=== PATIENT | male | born 1970 | race Caucasian/White ===

== ENCOUNTER 2018-03-02 14:00 | Emergency (ER) | payer OTHER ==
[2018-03-02 14:12] VITALS: RESP 16; BMI 29.0
[2018-03-02] MEDS ORDERED: Sodium Chloride 0.9% 1,000 ML IV STA (15:16)
--- NOTE | 2018-03-02 15:21 | ED PDOC ---
HPI: Male Pain Time Seen by Provider: 03/02/18 14:52 Chief Complaint (Nursing): Male Genitourinary Chief Complaint (Provider): Abd pain and urine blood History Per: Patient History/Exam Limitations: no limitations Onset/Duration Of Symptoms: Days (today) Additional Complaint(s): Pt. woke up with bloody urine, abd pain, back pain. No weakness, chest pain, dyspnea, fever, cough. No headaches, dizziness. Nausea, no vomit. No diarrhea. Past Medical History Reviewed: Nursing Documentation, Vital Signs Vital Signs: Last Vital Signs Temp 97 F L 03/02/18 14:11 Pulse 62 03/02/18 14:11 Resp 16 03/02/18 14:11 BP 128/79 03/02/18 14:11 Pulse Ox 99 03/02/18 14:11 - Medical History PMH: HTN Denies: Chronic Kidney Disease - Surgical History Surgical History: No Surg Hx Other surgeries: thyroid surg - Family History Family History: States: Unknown Family Hx - Home Medications Home Medications: Ambulatory Orders Medication Instructions Recorded Acetaminophen [Tylenol] 325 mg PO Q6H PRN 02/04/14 Ca Pantothenate/Folic Acid/V [Once 1 tab PO DAILY 02/04/14 Daily Multi-Vitamin] Cholecalciferol (Vitamin D3) 5,000 unit PO DAILY 02/04/14 [Vitamin D] Metoprolol Tartrate [Lopressor] 12.5 mg PO Q12H 02/04/14 Omeprazole Magnesium [Prilosec Otc] 20 mg PO DAILY PRN 02/04/14 Calcium Carbonate [Calcium 600] 600 mg PO BID #60 tab 02/07/14 Levothyroxine Sodium [Synthroid] 0.175 mg PO DAILY #30 tab 02/07/14 Ibuprofen [Motrin] 600 mg PO TID 7 Days tab 03/02/18 - Allergies Allergies/Adverse Reactions: Allergies Allergy/AdvReac Type Severity Reaction Status Date / Time No Known Allergies Allergy Verified 02/04/14 00:42 Review of Systems ROS Statement: Except As Marked, All Systems Reviewed And Found Negative Gastrointestinal: Positive for: Nausea, Abdominal Pain Genitourinary Male: Positive for: Dysuria, Frequency, Hematuria Physical Exam - Reviewed Nursing Documentation Reviewed: Yes Vital Signs Reviewed: Yes - Physical Exam Appears: Positive for: Non-toxic, No Acute Distress Head Exam: Positive for: ATRAUMATIC, NORMAL INSPECTION, NORMOCEPHALIC Skin: Positive for: Normal Color, Warm, DRY Eye Exam: Positive for: EOMI, Normal appearance, PERRL ENT: Positive for: Normal ENT Inspection Neck: Positive for: Normal, Painless ROM Cardiovascular/Chest: Positive for: Regular Rate, Rhythm Respiratory: Positive for: CNT, Normal Breath Sounds Gastrointestinal/Abdominal: Positive for: Soft, Tenderness (diffuse, mild) Back: Positive for: Normal Inspection, L CVA Tenderness (mild), R CVA Tenderness (mild) Extremity: Positive for: Normal ROM. Negative for: Tenderness, Pedal Edema Neurologic/Psych: Positive for: Alert, Oriented - Laboratory Results Result Diagrams: 03/02/18 15:40 03/02/18 15:40 Interpretation Of Abn Labs: 23 bun Urine dip results: Positive for: Blood - ECG O2 Sat by Pulse Oximetry: 99 Pulse Ox Interpretation: Normal - CT Scan/US ct Other Rad Studies (CT/US): Read By Radiologist Other Rad Interpretation: stone in kidney - Progress ED Course And Treament: 1730: Stable. Alert. Tolerates PO. No pain. Fu with pcp. AAOx3. Possibly passed stone considering urine and symptoms with ct findings. Disposition - Clinical Impression Clinical Impression: Kidney stones, Blood urine - Patient ED Disposition Is Patient to be Admitted: No Counseled Patient/Family Regarding: Studies Performed, Diagnosis, Need For Followup - Disposition Referrals: [facility] [Outside] - 03/04/18 Disposition: Routine/Home Disposition Time: 17:32 Condition: STABLE Additional Instructions: Return if not better in 3 days. Prescriptions: Ibuprofen [Motrin] 600 mg PO TID 7 Days tab Instructions: Kidney Stones in Adults, Blood in the Urine (Hematuria) in Adults Print Language: GEORGIAN
--- NOTE | 2018-03-02 16:27 | CT ---
Date of service: 03/02/2018 PROCEDURE: CT Abdomen and Pelvis without intravenous contrast HISTORY: Unspecified abdominal pain COMPARISON: None. TECHNIQUE: Unenhanced. Neither IV nor oral contrast administered Radiation dose: Total exam DLP = 502.79 mGy-cm. This CT exam was performed using one or more of the following dose reduction techniques: Automated exposure control, adjustment of the mA and/or kV according to patient size, and/or use of iterative reconstruction technique. FINDINGS: LOWER THORAX: Unremarkable. LIVER: Unremarkable. No gross lesion or ductal dilatation. GALLBLADDER AND BILE DUCTS: Unremarkable. PANCREAS: Unremarkable. No gross lesion or ductal dilatation. SPLEEN: Unremarkable. ADRENALS: Unremarkable. No mass. KIDNEYS AND URETERS: Unremarkable. No hydronephrosis. No solid mass. Nonobstructing 2 mm calculus lower pole collecting system on the left VASCULATURE: Unremarkable. No aortic aneurysm. No atherosclerotic calcification or mural plaque present. BOWEL: Diverticulosis without an acute inflammatory component or other associated pathologic process. APPENDIX: Multiple appendicoliths. No abnormalities to suggest acute appendicitis. No right lower quadrant inflammatory processes identified. PERITONEUM: Unremarkable. No free fluid. No free air. LYMPH NODES: Unremarkable. No enlarged lymph nodes. BLADDER: Unremarkable. REPRODUCTIVE: Unremarkable. BONES: No acute fracture. OTHER FINDINGS: None. IMPRESSION: Solitary and 2 mm nonobstructing left renal calculus. Otherwise No significant or acute findings to account for/ related to the clinical presentation.
[2018-03-02 16:31] LABS: BASO % 0.3 % (0.0-2.0); EOS # 0.1 K/uL (0.0-0.7); EOS % 1.6 % (0.0-4.0); HEMOGLOBIN 15.5 g/dL (12.0-18.0); LYMPH # 1.1 K/uL (1.0-4.3); LYMPH % 20.6 % (20.0-40.0); MEAN CELL VOLUME 89.6 fl (80.0-94.0); MEAN CORPUSCULAR HEMOGLOBIN 29.7 pg (27.0-31.0); MEAN CORPUSCULAR HGB CONC 33.1 g/dL (33.0-37.0); MEAN PLATELET VOLUME 7.8 fl (7.2-11.7); MONO # 0.5 K/uL (0.0-0.8); MONO % 9.8 % (0.0-10.0); NEUT # 3.5 K/uL (1.8-7.0); NEUT % 67.7 % (50.0-75.0); RBC 5.23 Mil/uL (4.40-5.90); RED CELL DISTRIBUTION WIDTH 14.4 % (11.5-14.5); WHITE BLOOD COUNT 5.2 K/uL (4.8-10.8)
[2018-03-02 16:39] LABS: ALB/GLOB RATIO 1.2 (1.0-2.1); ALBUMIN 4.3 g/dL (3.5-5.0); ALT/SGPT 47 U/L (21-72); AST/SGOT 33 U/L (17-59); BLOOD UREA NITROGEN 23 mg/dl (9-20); CALCIUM 7.8 mg/dL (8.4-10.2); GFR NON-AFRICAN AMERICAN > 60
[2018-03-02 16:44] LABS: PROTHROMBIN TIME 11.3 Seconds (9.8-13.1)
[2018-03-02 18:30] VITALS: BP 107/51; PULSE 55; TEMP 98.1; O2SAT 96
== END 2018-03-02 18:25 | disposition home or self-care (01) ==
LOC: H.ER 14:00
DX: N20.0 Calculus of kidney (principal); R31.9 Hematuria, unspecified; I10 Essential (primary) hypertension
CPT/HCPCS: 74176; 80053; 85025; 85610; 85730; 96361; 96374; 96375; 99284; J1885; J2405; J7030

== ENCOUNTER 2018-06-05 01:08 | Observation (INO) | payer SELFPAY ==
[2018-06-05 01:09] VITALS: BMI 29.0
[2018-06-05] MEDS ORDERED: Sodium Chloride 0.9% 1,000 ML IV STA (02:17)
--- NOTE | 2018-06-05 02:59 | ED PDOC ---
HPI: Male Pain Time Seen by Provider: 06/05/18 01:30 Chief Complaint (Nursing): Male Genitourinary Chief Complaint (Provider): Male Genitourinary History Per: Patient Onset/Duration Of Symptoms: Hrs (3) Current Symptoms Are (Timing): Still Present Associated Symptoms: Back Pain, Urinary Symptoms Additional Complaint(s): 48 y/o male with a history of kidney stones and hematuria presents to the ED due to hematuria since midnight. Patient states he saw a urologist who recently performed cystoscopy and found no lesions to explain the hematuria. Patient reports he has 2 episodes of bright red blood in urine with blood clots that is associated with lower back pain and abdominal pain. PMD: none provided Past Medical History Vital Signs: Last Vital Signs Temp 98.9 F 06/05/18 01:25 Pulse 82 06/05/18 01:25 Resp 16 06/05/18 01:25 BP 123/82 06/05/18 01:25 Pulse Ox 96 06/05/18 01:25 - Medical History PMH: HTN, Kidney Stones Denies: Chronic Kidney Disease - Family History Family History: States: Unknown Family Hx - Home Medications Home Medications: Ambulatory Orders Medication Instructions Recorded Acetaminophen [Tylenol] 325 mg PO Q6H PRN 02/04/14 Ca Pantothenate/Folic Acid/V [Once 1 tab PO DAILY 02/04/14 Daily Multi-Vitamin] Cholecalciferol (Vitamin D3) 5,000 unit PO DAILY 02/04/14 [Vitamin D] Metoprolol Tartrate [Lopressor] 12.5 mg PO Q12H 02/04/14 Omeprazole Magnesium [Prilosec Otc] 20 mg PO DAILY PRN 02/04/14 Calcium Carbonate [Calcium 600] 600 mg PO BID #60 tab 02/07/14 Levothyroxine Sodium [Synthroid] 0.175 mg PO DAILY #30 tab 02/07/14 Ibuprofen [Motrin] 600 mg PO TID 7 Days tab 03/02/18 Sulfamethoxazole/Trimethoprim 1 tab PO BID #20 tab 06/05/18 [Bactrim DS 800 mg-160 mg] - Allergies Allergies/Adverse Reactions: Allergies Allergy/AdvReac Type Severity Reaction Status Date / Time No Known Allergies Allergy Verified 06/05/18 01:25 Review of Systems ROS Statement: Except As Marked, All Systems Reviewed And Found Negative Gastrointestinal: Positive for: Abdominal Pain (lower) Genitourinary Male: Positive for: Hematuria Musculoskeletal: Positive for: Back Pain Physical Exam - Reviewed Nursing Documentation Reviewed: Yes Vital Signs Reviewed: Yes - Physical Exam Appears: Positive for: Non-toxic, No Acute Distress Head Exam: Positive for: ATRAUMATIC, NORMAL INSPECTION, NORMOCEPHALIC Skin: Positive for: Normal Color, Warm, Dry Eye Exam: Positive for: EOMI, Normal appearance, PERRL ENT: Positive for: Normal ENT Inspection Neck: Positive for: Normal, Painless ROM, Supple Cardiovascular/Chest: Positive for: Regular Rate, Rhythm. Negative for: Murmur Respiratory: Positive for: CNT, Normal Breath Sounds Gastrointestinal/Abdominal: Positive for: Tenderness (mild abdominal ) Extremity: Positive for: Normal ROM Neurological/Psych: Positive for: Awake, Alert, Normal Tone - Laboratory Results Result Diagrams: 06/05/18 03:15 06/05/18 03:15 - ECG O2 Sat by Pulse Oximetry: 96 Medical Decision Making Medical Decision Makin:17 Impression: 48 y/o male presents with gross hematuria. initial plans: 02:17 --CMP --CBC --ABD & PELVIS W/O PO OR IV --Urine Dipstick -- Sodium Chloride 1,000ml IV --Torodol 30mg IV -- Urinalysis 04:06 CT SCAN OF THE ABDOMEN AND PELVIS WITHOUT ORAL OR IV CONTRAST. CLINICAL INDICATION: Renal colic. TECHNIQUE: Axial and reformatted sagittal and coronal images of the abdomen pelvis obtained without IV contrast administration. COMPARISON: None. FINDINGS: Fat-containing right inguinal hernia without incarceration. Uncomplicated diverticulosis of the colon. Moderate amount of fecal residue in the large bowels. Mild prostatomegaly. Scattered prostatic calcifications. The visualized lung bases are unremarkable. Normal unenhanced liver. Normal gallbladder and extrahepatic biliary system. Normal unenhanced spleen. Normal pancreas. Normal bilateral adrenal glands. Normal size of the right kidney. There is no right renal mass. There are no right renal calculi. There is no right hydronephrosis. Normal visualized right ureter. Normal size of the left kidney. There is no left renal mass. 3 mm left renal nonobstructing stone. There is no left hydronephrosis. Normal visualized left ureter. Normal visualized stomach. Normal small intestine. Normal colon. The appendix is visualized and appears normal. There is no demonstrated peritoneal fluid. Normal abdominal aorta. Normal inferior vena cava. Normal retroperitoneum. Normal urinary bladder. There is no pelvic mass lesion or lymphadenopathy. There is no pelvic fluid. Normal abdominal wall. Normal osseous structures. IMPRESSION: Fat-containing right inguinal hernia without incarceration. Uncomplicated diverticulosis of the colon. Moderate amount of fecal residue in the large bowels. Mild prostatomegaly. Scattered prostatic calcifications. Nonobstructing left nephrolithiasis. 05:[address] Fernandez, the urologist who performed the cystoscopy, of patient. He would like to rescope patient today in order to find source of bleeding. Patient will be admitted. Case referred to Dr. Chavis. Scribe Attestation: Documented by Lucila Mcgrath, acting as a scribe Al Huntley MD Provider Scribe Attestation: All medical record entries made by the Scribe were at my direction and personally dictated by me. I have reviewed the chart and agree that the record accurately reflects my personal performance of the history, physical exam, medical decision making, and the department course for this patient. I have also personally directed, reviewed, and agree with the discharge instructions and disposition Disposition - Clinical Impression Clinical Impression: Hematuria, Kidney stone - Disposition Referrals: Shaq Fernandez MD [Medical Doctor] - Disposition Time: 05:36 Condition: STABLE Prescriptions: Sulfamethoxazole/Trimethoprim [Bactrim DS 800 mg-160 mg] 1 tab PO BID #20 tab Instructions: Kidney Stones in Adults, Blood in the Urine (Hematuria), Adult (DC) Forms: [employer] (Ghanaian) Print Language: AUSTRIAN - Pt Status Changed To: Hospital Disposition Of: Inpatient - Admit Certification Admit to Inpatient:: After my assessment, the patient will require hospitalization for at least two midnights. This is because of the severity of symptoms shown, intensity of services needed, and/or the medical risk in this patient being treated as an outpatient.
[2018-06-05 03:24] LABS: BASO % 0.3 % (0.0-2.0); EOS # 0.1 K/uL (0.0-0.7); HEMOGLOBIN 14.8 g/dL (12.0-18.0); LYMPH # 1.9 K/uL (1.0-4.3); LYMPH % 25.3 % (20.0-40.0); MEAN CELL VOLUME 88.9 fl (80.0-94.0); MEAN CORPUSCULAR HEMOGLOBIN 30.4 pg (27.0-31.0); MEAN CORPUSCULAR HGB CONC 34.2 g/dL (33.0-37.0); MEAN PLATELET VOLUME 7.8 fl (7.2-11.7); MONO # 0.7 K/uL (0.0-0.8); MONO % 8.7 % (0.0-10.0); NEUT # 4.7 K/uL (1.8-7.0); NEUT % 63.7 % (50.0-75.0); NRBC % 0.3 % (0.0-0.0); RBC 4.86 Mil/uL (4.40-5.90); RED CELL DISTRIBUTION WIDTH 14.2 % (11.5-14.5)
[2018-06-05 03:26] LABS: WHITE BLOOD COUNT 7.5 K/uL (4.8-10.8)
[2018-06-05 03:32] LABS: ALB/GLOB RATIO 1.3 (1.0-2.1); ALBUMIN 4.4 g/dL (3.5-5.0); ALT/SGPT 44 U/L (21-72); AST/SGOT 29 U/L (17-59); BLOOD UREA NITROGEN 27 mg/dl (9-20); CALCIUM 8.2 mg/dL (8.4-10.2); GFR NON-AFRICAN AMERICAN > 60
[2018-06-05 04:53] LABS: URINE BILIRUBIN NEGATIVE (NEGATIVE); URINE BLOOD LARGE (NEGATIVE); URINE CLARITY CLOUDY (Clear); URINE COLOR AMBER (YELLOW); URINE GLUCOSE (UA) NEG (NEGATIVE); URINE LEUKOCYTE ESTERASE NEG Leu/uL (Negative); URINE PROTEIN 100 mg/dL (NEGATIVE); URINE UROBILINOGEN 0.2-1.0 mg/dL (0.2-1.0)
[2018-06-05] MEDS ORDERED: Sodium Chloride 0.9% 1,000 ML IV SCH (06:15)
--- NOTE | 2018-06-05 06:20 | CP.PCM.HP ---
<Aristides Tovar - Last Filed: 06/05/18 06:12> History of Present Illness - History of Present Illness History of Present Illness: This is 48 y/o M with PMH of Graves s/p thyroidectomy few years ago and hematuria s/p cystoscopy a month ago admitted to [facility] for gross hematuria. As per patient he has been having intermittent hematuria since his cystectomy with Dr. Wright which got worse in last 2 days. Patient reports gross hematuria with blood clots continues since last 2 days with hesitancy and uncomfortable feeling while urinating. + nausea, + occasional abdominal pain/cramping and bloating. Denies any f/c/v/back pain, diarrhea or blood with stool. PMH/PSH: Graves s/p thyroidectomy few years ago and hematuria s/p cystectomy Allg: NKDA Meds: As per EMR FH: + DM, no cancers SH: Denies alcohol, smoking or drug use ROS: As per HPI ER COurse: VS: Afebrile and stable CBC: WNL, no anemia CMP: 27/0/7 BUN/CR UA: + large blood and RBCs CT A/P S/p: Toradol, Ceftriaxone and 1L IVF Present on Admission - Present on Admission Any Indicators Present on Admission: No Review of Systems - Constitutional Constitutional: absent: Excessive Sweating - EENT Eyes: absent: Blurred Vision Ears: absent: Ear Discharge, Dizziness Nose/Mouth/Throat: absent: Nasal Congestion - Cardiovascular Cardiovascular: absent: Chest Pain, Chest Pain at Rest, Claudication - Respiratory Respiratory: absent: Dyspnea, Hemoptysis - Gastrointestinal Gastrointestinal: Nausea. absent: Abdominal Pain, Coffee Ground Emesis, Diarrhea, Hematemesis, Hematochezia, Vomiting - Genitourinary Genitourinary: Change in Urinary Stream, Difficulty Urinating, Hematuria, Urinary Hesitance, Hx Renal/Bladder Calculi. absent: Dysuria, Urinary Incontinence, Urinary Urgency, Voiding Freq/Small Amts, Freq UTI - Musculoskeletal Musculoskeletal: absent: Numbness, Stiffness - Integumentary Integumentary: absent: Bleeding Lesions, Rash, Swelling - Neurological Neurological: absent: Abnormal Movements, Syncope, Tingling, Tremor - Psychiatric Psychiatric: absent: Anxiety - Endocrine Endocrine: absent: Polyphagia, Polyuria - Hematologic/Lymphatic Hematologic: absent: Easy Bruising Past Patient History - Infectious Disease Hx of Infectious Diseases: None - Past Social History Smoking Status: Never Smoked - CARDIAC Hx Hypertension: Yes - PULMONARY Hx Respiratory Disorders: No - NEUROLOGICAL Hx Neurological Disorder: No - HEENT Hx HEENT Problems: No - RENAL Hx Chronic Kidney Disease: No Hx Kidney Stones: Yes - ENDOCRINE/METABOLIC Other/Comment: Thyroidectomy. Hypocalcemia - HEMATOLOGICAL/ONCOLOGICAL Hx Blood Transfusions: No - INTEGUMENTARY Hx Dermatological Problems: No - MUSCULOSKELETAL/RHEUMATOLOGICAL Hx Musculoskeletal Disorders: No Hx Falls: No - GASTROINTESTINAL Hx Gastroesophageal Reflux: Yes - GENITOURINARY/GYNECOLOGICAL Hx Genitourinary Disorders: No - PSYCHIATRIC Hx Psychophysiologic Disorder: No Hx Substance Use: No - SURGICAL HISTORY Hx Thyroidectomy: Yes - ANESTHESIA Hx Anesthesia: Yes Hx Anesthesia Reactions: No Meds Allergies/Adverse Reactions: Allergies Allergy/AdvReac Type Severity Reaction Status Date / Time No Known Allergies Allergy Verified 06/05/18 01:25 Physical Exam - Constitutional Appears: No Acute Distress - Head Exam Head Exam: ATRAUMATIC, NORMAL INSPECTION, NORMOCEPHALIC - Eye Exam Eye Exam: EOMI, Normal appearance, PERRL Pupil Exam: NORMAL ACCOMODATION - ENT Exam ENT Exam: Mucous Membranes Moist, Normal Exam - Neck Exam Neck exam: Positive for: Normal Inspection - Respiratory Exam Respiratory Exam: Clear to Auscultation Bilateral, NORMAL BREATHING PATTERN. absent: Rhonchi, Wheezes, Respiratory Distress - Cardiovascular Exam Cardiovascular Exam: REGULAR RHYTHM, +S1, +S2 - GI/Abdominal Exam GI & Abdominal Exam: Normal Bowel Sounds, Soft. absent: Distended, Guarding, Rebound, Rigid, Tenderness - Extremities Exam Extremities exam: Positive for: normal inspection. Negative for: tenderness - Back Exam Back exam: NORMAL INSPECTION. absent: CVA tenderness (L), CVA tenderness (R), muscle spasm - Neurological Exam Neurological exam: Alert, CN II-XII Intact, Normal Gait, Oriented x3 - Psychiatric Exam Psychiatric exam: Normal Affect - Skin Skin Exam: Normal Color Results - Vital Signs Recent Vital Signs: Last Vital Signs Temp 98.9 F 06/05/18 01:25 Pulse 82 06/05/18 01:25 Resp 16 06/05/18 01:25 BP 123/82 06/05/18 01:25 Pulse Ox 96 06/05/18 05:43 - Labs Result Diagrams: 06/05/18 03:15 06/05/18 03:15 Labs: Laboratory Results - last 24 hr 06/05/18 06/05/18 06/05/18 03:15 03:15 04:30 WBC 7.5 D RBC 4.86 Hgb 14.8 Hct 43.2 MCV 88.9 MCH 30.4 MCHC 34.2 RDW 14.2 Plt Count 216 MPV 7.8 Neut % (Auto) 63.7 Lymph % (Auto) 25.3 [place] % (Auto) 8.7 Eos % (Auto) 2.0 Baso % (Auto) 0.3 Neut # (Auto) 4.7 Lymph # (Auto) 1.9 [place] # (Auto) 0.7 Eos # (Auto) 0.1 Baso # (Auto) 0.0 Sodium 139 Potassium 3.9 Chloride 103 Carbon Dioxide 29 Anion Gap 11 BUN 27 H Creatinine 0.7 L Est GFR ( Amer) > 60 Est GFR (Non-Af Amer) > 60 Random Glucose 90 Calcium 8.2 L Total Bilirubin 0.2 AST 29 ALT 44 Alkaline Phosphatase 93 Total Protein 7.8 Albumin 4.4 Globulin 3.4 Albumin/Globulin Ratio 1.3 Urine Color Rae Urine Clarity Cloudy Urine pH 7.0 Ur Specific [place] 1.026 Urine Protein 100 Urine Glucose (UA) Neg Urine Ketones Negative Urine Blood Large Urine Nitrate Negative Urine Bilirubin Negative Urine Urobilinogen 0.2-1.0 Ur Leukocyte Esterase Neg Urine RBC (Auto) 6948 H Assessment & Plan - Assessment and Plan (Free Text) Assessment: A/P: 48 y/o M with PMH of Graves s/p thyroidectomy few years ago and hematuria s/p cystoscopy a month ago admitted to [facility] for gross hematuria. Gross Hematuria/Nonobstructing left nephrolithiasis - HD stable - Consult urology, Dr. Wright, f/u recommendations - CT A/P: Scattered prostatic calcifications, Nonobstructing left n ephrolithiasis. - C/w IVF, NPO - Repeat CBC in 6 hours, f/u result - Possible urology intervention/cystoscopy as per uro Hypothyroid, s/p thyroidectomy - C/w home medication DVT PPX - SCD for now Case discussed with Dr. Chavis <Martínez Chavis - Last Filed: 06/05/18 09:53> Results - Vital Signs Recent Vital Signs: Last Vital Signs Temp 98.9 F 06/05/18 01:25 Pulse 61 06/05/18 09:18 Resp 14 06/05/18 06:50 BP 115/74 06/05/18 06:50 Pulse Ox 99 06/05/18 06:50 - Labs Result Diagrams: 06/05/18 03:15 06/05/18 03:15 Labs: Laboratory Results - last 24 hr 06/05/18 06/05/18 06/05/18 03:15 03:15 04:30 WBC 7.5 D RBC 4.86 Hgb 14.8 Hct 43.2 MCV 88.9 MCH 30.4 MCHC 34.2 RDW 14.2 Plt Count 216 MPV 7.8 Neut % (Auto) 63.7 Lymph % (Auto) 25.3 [place] % (Auto) 8.7 Eos % (Auto) 2.0 Baso % (Auto) 0.3 Neut # (Auto) 4.7 Lymph # (Auto) 1.9 [place] # (Auto) 0.7 Eos # (Auto) 0.1 Baso # (Auto) 0.0 Sodium 139 Potassium 3.9 Chloride 103 Carbon Dioxide 29 Anion Gap 11 BUN 27 H Creatinine 0.7 L Est GFR ( Amer) > 60 Est GFR (Non-Af Amer) > 60 Random Glucose 90 Calcium 8.2 L Total Bilirubin 0.2 AST 29 ALT 44 Alkaline Phosphatase 93 Total Protein 7.8 Albumin 4.4 Globulin 3.4 Albumin/Globulin Ratio 1.3 Urine Color Rae Urine Clarity Cloudy Urine pH 7.0 Ur Specific [place] 1.026 Urine Protein 100 Urine Glucose (UA) Neg Urine Ketones Negative Urine Blood Large Urine Nitrate Negative Urine Bilirubin Negative Urine Urobilinogen 0.2-1.0 Ur Leukocyte Esterase Neg Urine RBC (Auto) 6948 H Attending/Attestation - Attestation I have personally seen and examined this patient.: Yes I have fully participated in the care of the patient.: Yes I have reviewed all pertinent clinical information: Yes Notes (Text): 06/05/18 09:39 I saw examined and discussed this paatient with Dr Tovar. I agree with the Asses sment and plan outlined. This is a 48 years old male with a 3 month hx of hemturia and Cystoscopy who refers continued hematuria even after the cystoscopy. The last 3 days the hematuria became worse mixed with clots.He is admitted for investigation of this hematuria, He will be admitted to the medical floor. nothing by mouth, IV antibiotics, IV fluid; Pain med, consult with Dr wright the urologist Martínez Chavis MD
[2018-06-05] MEDS ORDERED: cefTRIAXone (Rocephin) 1 gm Inj ONE ×2 (06:57→10:10)
--- NOTE | 2018-06-05 07:56 | CT ---
Date of service: 06/05/2018 PROCEDURE: CT Abdomen and Pelvis without intravenous contrast HISTORY: renal colic COMPARISON: Abdomen pelvis CT without contrast 03/02/2018. TECHNIQUE: Helical CT of the abdomen and pelvis was performed without oral or intravenous contrast as per referring physician request. Coronal and sagittal reformats were generated.. Radiation dose: Total exam DLP = 468.48 mGy-cm. This CT exam was performed using one or more of the following dose reduction techniques: Automated exposure control, adjustment of the mA and/or kV according to patient size, and/or use of iterative reconstruction technique. FINDINGS: LOWER THORAX: Unremarkable. LIVER: Unremarkable. No gross lesion or ductal dilatation. GALLBLADDER AND BILE DUCTS: Unremarkable. PANCREAS: Unremarkable. No gross lesion or ductal dilatation. SPLEEN: Unremarkable. ADRENALS: Unremarkable. No mass. KIDNEYS AND URETERS: No obstructive uropathy bilaterally. No gross contour abnormality to suggest renal mass. Once again, 2-3 punctate intrarenal calculi are identified at the lower pole left kidney which are nonobstructive. VASCULATURE: Unremarkable. No aortic aneurysm. No aortic atherosclerotic calcification or mural plaque present. BOWEL: Unremarkable. No obstruction. No gross mural thickening. APPENDIX: No acute appendicitis. Multiple appendecoliths are identified at the base of the appendix as well as at midportion. PERITONEUM: Unremarkable. No free fluid. No free air. LYMPH NODES: Unremarkable. No enlarged lymph nodes. BLADDER: Unremarkable. REPRODUCTIVE: Borderline enlarged prostate gland. BONES: No acute fracture. OTHER FINDINGS: None. IMPRESSION: Nonobstructing intrarenal calculi are again identified at the lower pole left kidney. No hydronephrosis bilaterally or hydroureter. Urinary bladder appears unremarkable. Nonspecific streaky perinephric changes are minimally identified bilaterally of uncertain etiology. Clinically correlate further. Further evaluation remaining abdominal pelvic versus limited due lack of oral and intravenous contrast agents but no definite additional potential acute abdominal or pelvic findings are appreciated. Follow-up CT with intravenous and oral contrast may be considered if clinically warranted. Preliminary report provided by Lizette, 06/05/2018, 4:06 a.m..
[2018-06-05] MEDS ORDERED: LEVOTHYROXINE SODIUM 0.175 MG PO SCH (09:00)
[2018-06-05] MEDS ORDERED: Propofol 10 mg/ml Inj (20 ML) ONE (09:57)
[2018-06-05] MEDS ORDERED: Midazolam 2 MG/2 ML VIAL ONE (09:57)
[2018-06-05] MEDS ORDERED: Lactated Ringer's 1,000 ML IV ONE (10:05)
[2018-06-05] MEDS ORDERED: cefTRIAXone (Rocephin) 1 gm Inj IM ONE (10:15)
[2018-06-05] MEDS ORDERED: HYDROmorphone 0.5 mg/0.5 ml ISec IVP PRN (10:48)
[2018-06-05] MEDS ORDERED: HYDROmorphone 0.5 mg/0.5 ml ISec ONE (10:53)
[2018-06-05] MEDS ORDERED: Lactated Ringer's 1,000 ML IV SCH (11:00)
[2018-06-05 12:48] VITALS: RESP 18
[2018-06-05 14:45] VITALS: BP 123/79; PULSE 58; TEMP 97.5; O2SAT 99
--- NOTE | 2018-06-05 19:27 | CARD ---
APPROVED REPORT Date of service: 06/05/2018 EKG Measurement Heart [id number] <Conclusion> Sinus bradycardia Cannot rule out Inferior infarct, age undetermined Abnormal ECG
--- NOTE | 2018-06-05 21:42 | OP ---
PROCEDURE DATE: 06/05/2018 PREOPERATIVE DIAGNOSIS: Gross hematuria. POSTOPERATIVE DIAGNOSIS: Hemorrhagic prostate. PROCEDURE PERFORMED: Cystoscopy with bladder neck biopsy and significant cauterization of the prostatic urethra. SURGEON: Shaq Fernandez MD DESCRIPTION OF PROCEDURE: The patient was placed on the operating room table in a dorsal lithotomy position, given general anesthesia, the area of the groin was draped and prepped. At this time, using a #21 cystoscope, I entered into the bladder atraumatically. I did see at the level of the bladder neck that there was some fragmented tissue that was bleeding. It appeared almost like a pumper and I took a biopsy of that tissue. I examined the ureteral orifices. The efflux was clear bilaterally. The bladder wall in essence is completely normal. I then exchanged the cystoscope for resectoscope and I could see more of the bleeding in this area. I cauterized this area and as I was backing out it appeared to be that the prostatic urethra just by manipulating it was bleeding more, so I cauterized basically the area of the prostatic urethra. The verumontanum was at demarcation line, and at the end, I took some documenting photos that appeared to be dry. I did not leave a Clarke catheter not to irritate the urethra anymore. The patient was taken from the operating room in good condition. Shaq Fernandez MD
[2018-06-06] MEDS ORDERED: Levothyroxine 175 MCG TAB PO SCH (06:30)
== END 2018-06-05 15:15 | disposition home or self-care (01) ==
LOC: H.ER 01:08 → H.ERHOLD 05:36 → INTOOBSV 05:36
PROVIDERS: ADMIT Internal Medicine; ATTEND Internal Medicine
DX: N40.0 Benign prostatic hyperplasia without lower urinary tract symptoms (principal); N42.89 Other specified disorders of prostate; Z87.442 Personal history of urinary calculi; E83.51 Hypocalcemia; Z83.3 Family history of diabetes mellitus; E03.9 Hypothyroidism, unspecified; I10 Essential (primary) hypertension; K21.9 Gastro-esophageal reflux disease without esophagitis; K40.90 Unilateral inguinal hernia, without obstruction or gangrene, not specified as recurrent; K57.30 Diverticulosis of large intestine without perforation or abscess without bleeding; N20.0 Calculus of kidney
CPT/HCPCS: 52204; 74176; 80053; 81003; 85025; 88305; 93005; 99284; G0378; J0696; J1170; J1885; J2001; J2250; J2704; J3010; J7030; J7120

== ENCOUNTER 2018-07-03 07:20 | Observation (INO) | payer SELFPAY ==
[2018-07-03 07:29] VITALS: BMI 26.8
--- NOTE | 2018-07-03 08:31 | ED PDOC ---
HPI: Male Pain Time Seen by Provider: 07/03/18 07:31 Chief Complaint (Nursing): Male Genitourinary Chief Complaint (Provider): Male Genitourinary History Per: Patient History/Exam Limitations: no limitations Onset/Duration Of Symptoms: Persistent Additional Complaint(s): 48 y/o male presents to the ED complaining of difficult urination and bloody urine. Patient states last night he had a blood clot when he urinated and still has them. He reports now he does not urine normal just drops of urine. Patient states the pain is mild but yesterday the pain was much worse. He states that has being going on and off for 4 months and has not gone to the doctor. He did see Dr. Fernandez and had a septectomy and states he need a catheterization. Patient denies nausea, back pain, vomiting, or any fever. PMD: none provided Past Medical History Reviewed: Historical Data, Nursing Documentation, Vital Signs Vital Signs: Last Vital Signs Temp 98.4 F 07/03/18 07:28 Pulse 95 H 07/03/18 07:28 Resp 16 07/03/18 07:28 BP 118/85 07/03/18 07:28 Pulse Ox 98 07/03/18 07:28 Primary Care Provider: Non [facility] Provider, - Medical History PMH: HTN, Kidney Stones Denies: Chronic Kidney Disease - Family History Family History: States: Unknown Family Hx - Home Medications Home Medications: Ambulatory Orders Medication Instructions Recorded Calcium Carbonate 600 mg PO BID #60 tab 02/07/14 Levothyroxine Sodium [Synthroid] 0.175 mg PO DAILY #30 tab 02/07/14 Ciprofloxacin HCl [Cipro] 500 mg PO Q12 #14 tablet 06/05/18 - Allergies Allergies/Adverse Reactions: Allergies Allergy/AdvReac Type Severity Reaction Status Date / Time No Known Allergies Allergy Verified 06/05/18 01:25 Review of Systems ROS Statement: Except As Marked, All Systems Reviewed And Found Negative Constitutional: Negative for: Fever Gastrointestinal: Positive for: Abdominal Pain. Negative for: Vomiting, Diarrhea Genitourinary Male: Positive for: Dysuria, Hematuria Musculoskeletal: Negative for: Back Pain Physical Exam - Reviewed Nursing Documentation Reviewed: Yes Vital Signs Reviewed: Yes - Physical Exam Appears: Positive for: Well, Non-toxic, No Acute Distress. Negative for: Uncomfortable Head Exam: Positive for: ATRAUMATIC, NORMAL INSPECTION, NORMOCEPHALIC Skin: Positive for: Normal Color, Warm, Dry Eye Exam: Positive for: EOMI, Normal appearance, PERRL ENT: Positive for: Normal ENT Inspection Neck: Positive for: Normal, Painless ROM, Supple Cardiovascular/Chest: Positive for: Regular Rate, Rhythm. Negative for: Murmur Respiratory: Positive for: Normal Breath Sounds. Negative for: Wheezing Gastrointestinal/Abdominal: Positive for: Normal Exam, Soft, Tenderness (Mild superpubic tenderness), Distended Back: Positive for: Normal Inspection. Negative for: L CVA Tenderness, R CVA Tenderness Extremity: Positive for: Normal ROM Neurological/Psych: Positive for: Awake, Alert, Normal Tone, Oriented (x3). Negative for: Motor/Sensory Deficits - Laboratory Results Result Diagrams: 07/04/18 05:00 07/04/18 05:00 - ECG O2 Sat by Pulse Oximetry: 98 Medical Decision Making Medical Decision Making: Time:810 Initial Impression: Hematuria and Dysuria. Possible urinary retention. Initial Plan: -BMP -CBC -PTT -Prothrobin -Bladder scan -Consult urology [address] Fernandez who recommends insertion of Clarke and irrigation. Consult Dr Bay if needed. 1200 UOP is clearing. Small amounts of clots. 1400 UOP is still with blood clots. [address] Bay who recommends continuing irrigation and admitting the patient. [address] Guajardo for admission. Scribe Attestation: Documented by Leonora Nieto, acting as a scribe for Samantha Brown. Provider Scribe Attestation: All medical record entries made by the Scribe were at my direction and personally dictated by me. I have reviewed the chart and agree that the record accurately reflects my personal performance of the history, physical exam, medical decision making, and the department course for this patient. I have also personally directed, reviewed, and agree with the discharge instructions and disposition. Disposition - Clinical Impression Clinical Impression: Urinary retention, Hematuria - Patient ED Disposition Is Patient to be Admitted: Yes Discussed With : Ren Guajardo Doctor Will See Patient In The: Hospital Counseled Patient/Family Regarding: Studies Performed, Diagnosis, Need For Followup - Disposition Disposition Time: 15:00 Condition: FAIR - Pt Status Changed To: Hospital Disposition Of: Observation - POA Present On Arrival: None
[2018-07-03 08:39] LABS: BASO % 0.5 % (0.0-2.0); EOS # 0.2 K/uL (0.0-0.7); EOS % 2.9 % (0.0-4.0); HEMOGLOBIN 16.4 g/dL (12.0-18.0); LYMPH # 1.4 K/uL (1.0-4.3); LYMPH % 25.1 % (20.0-40.0); MEAN CELL VOLUME 89.1 fl (80.0-94.0); MEAN CORPUSCULAR HGB CONC 33.7 g/dL (33.0-37.0); MEAN PLATELET VOLUME 8.2 fl (7.2-11.7); MONO # 0.5 K/uL (0.0-0.8); MONO % 8.6 % (0.0-10.0); NEUT # 3.5 K/uL (1.8-7.0); NEUT % 62.9 % (50.0-75.0); NRBC % 0.1 % (0.0-0.0); RBC 5.45 Mil/uL (4.40-5.90); RED CELL DISTRIBUTION WIDTH 13.8 % (11.5-14.5); WHITE BLOOD COUNT 5.6 K/uL (4.8-10.8)
[2018-07-03 08:45] LABS: PROTHROMBIN TIME 11.8 Seconds (9.8-13.1)
[2018-07-03 08:47] LABS: PARTIAL THROMBOPLASTIN TIME 35.4 Seconds (25.6-37.1)
[2018-07-03 08:51] LABS: BLOOD UREA NITROGEN 23 mg/dl (9-20); CALCIUM 7.9 mg/dL (8.4-10.2); GFR NON-AFRICAN AMERICAN > 60
--- NOTE | 2018-07-03 15:45 | CP.PCM.HP ---
<Sylwia Galan - Last Filed: 07/03/18 16:43> History of Present Illness - History of Present Illness History of Present Illness: 48-year-old male with PMH of Graves (s/p thyroidectomy few years ago) and hematuria s/p cystoscopy a month ago (06/05) admitted to [facility] for gross hematuria. As per patient his hematuria slowly resolved after last cystoscopy with Dr. Fernandez but it has gradually returned since yesterday. Denies any heavy lifting or strenuous work prior to onset of hematuria but admits to taking Naproxen three days ago (advised by Dr Fernandez as per patient). He reports gross hematuria with blood clots, hesitancy and uncomfortable feeling while urinating associated with nausea and occasional abdominal cramping/pain. This has been an ingoing issue of off and on hematuria for 4 months. Denies any f/c/v/back pain, diarrhea or blood with stool. PMD: Dr Mahoney ([facility]); Dr Fernandez - Urology PMH/PSH: Graves s/p thyroidectomy few years ago and hematuria s/p cystectomy Allg: NKDA Meds: As per EMR FH: + DM, no cancers SH: Denies alcohol, smoking or drug use ED Course: Vitals WNL -BMP -CBC -PTT/PT -Bladder scan -Consult urology (Dr Olvera) Bladder biopsy (06/05/18): chronic inflammation with granulation tissue formation. Urothelium shows reactive changes. Abd/Pelvis CT: stable non-obstructing left renal calculi, no hydronephrosis. Clarke catheter identified in the urinary bladder. Multiple air-fluid levels. New hyperdense layering material likely hemorrhage/clot. This measures 2.2 x 3.2 cm. Additional benign and/or incidental findings - multiple appendicoliths. Present on Admission - Present on Admission Any Indicators Present on Admission: No Review of Systems - Review of Systems Review of Systems: all other systems reviewed and negative unless noted in HPI. Past Patient History - Infectious Disease Hx of Infectious Diseases: None - Past Medical History & Family History Past Medical History?: Yes - Past Social History Smoking Status: Unknown If Ever Smoked - CARDIAC Hx Hypertension: Yes - PULMONARY Hx Respiratory Disorders: No - NEUROLOGICAL Hx Neurological Disorder: No - HEENT Hx HEENT Problems: No - RENAL Hx Chronic Kidney Disease: No Hx Kidney Stones: Yes - ENDOCRINE/METABOLIC Other/Comment: Thyroidectomy. Hypocalcemia, Graves disease - HEMATOLOGICAL/ONCOLOGICAL Hx Blood Transfusions: No - INTEGUMENTARY Hx Dermatological Problems: No - MUSCULOSKELETAL/RHEUMATOLOGICAL Hx Musculoskeletal Disorders: No Hx Falls: No - GASTROINTESTINAL Hx Gastrointestinal Disorders: Yes - GENITOURINARY/GYNECOLOGICAL Hx Genitourinary Disorders: Yes Hx Bladder Stone: Yes Hx Hematuria: Yes - PSYCHIATRIC Hx Emotional Abuse: No Hx Physical Abuse: No Hx Substance Use: No - SURGICAL HISTORY Hx Surgeries: Yes - ANESTHESIA Hx Anesthesia: Yes Hx Anesthesia Reactions: No Meds Allergies/Adverse Reactions: Allergies Allergy/AdvReac Type Severity Reaction Status Date / Time No Known Allergies Allergy Verified 06/05/18 01:25 Physical Exam - Head Exam Head Exam: NORMAL INSPECTION - Eye Exam Eye Exam: Normal appearance - ENT Exam ENT Exam: Mucous Membranes Moist - Neck Exam Neck exam: Positive for: Normal Inspection - Respiratory Exam Respiratory Exam: NORMAL BREATHING PATTERN. absent: Respiratory Distress - Cardiovascular Exam Cardiovascular Exam: REGULAR RHYTHM - GI/Abdominal Exam GI & Abdominal Exam: Tenderness (tenderness to very light touch, mostly suprapubic but diffuse) - Exam Additional comments: gross hematuria Results - Vital Signs Recent Vital Signs: Last Vital Signs Temp 98.4 F 07/03/18 07:28 Pulse 95 H 07/03/18 07:28 Resp 16 07/03/18 07:28 BP 118/85 07/03/18 07:28 Pulse Ox 98 07/03/18 10:11 - Labs Result Diagrams: 07/03/18 08:24 07/03/18 08:24 Labs: Laboratory Results - last 24 hr 07/03/18 07/03/18 07/03/18 08:24 08:24 08:24 WBC 5.6 RBC 5.45 Hgb 16.4 Hct 48.6 MCV 89.1 MCH 30.0 MCHC 33.7 RDW 13.8 Plt Count 192 MPV 8.2 Neut % (Auto) 62.9 Lymph % (Auto) 25.1 [place] % (Auto) 8.6 Eos % (Auto) 2.9 Baso % (Auto) 0.5 Neut # (Auto) 3.5 Lymph # (Auto) 1.4 [place] # (Auto) 0.5 Eos # (Auto) 0.2 Baso # (Auto) 0.0 PT 11.8 INR 1.0 APTT 35.4 Sodium 138 Potassium 4.0 Chloride 100 Carbon Dioxide 30 Anion Gap 12 BUN 23 H Creatinine 0.8 Est GFR ( Amer) > 60 Est GFR (Non-Af Amer) > 60 Random Glucose 99 Calcium 7.9 L Blood Type Blood Type Confirm Antibody Screen BBK History Checked 07/03/18 07/03/18 08:24 08:52 WBC RBC Hgb Hct MCV MCH MCHC RDW Plt Count MPV Neut % (Auto) Lymph % (Auto) [place] % (Auto) Eos % (Auto) Baso % (Auto) Neut # (Auto) Lymph # (Auto) [place] # (Auto) Eos # (Auto) Baso # (Auto) PT INR APTT Sodium Potassium Chloride Carbon Dioxide Anion Gap BUN Creatinine Est GFR ( Amer) Est GFR (Non-Af Amer) Random Glucose Calcium Blood Type O POSITIVE Blood Type Confirm O POSITIVE Antibody Screen Negative BBK History Checked No verified bt Assessment & Plan - Assessment and Plan (Free Text) Assessment: 48-year-old male with PMH of Graves (s/p thyroidectomy few years ago) and hematuria s/p cystoscopy a month ago admitted to [facility] for gross hematuria. Bladder biopsy (06/05/18): chronic inflammation with granulation tissue formation. Urothelium shows reactive changes. Abd/Pelvis CT: stable non-obstructing left renal calculi, no hydronephrosis. Clarke catheter identified in the urinary bladder. Multiple air-fluid levels. New hyperdense layering material likely hemorrhage/clot. This measures 2.2 x 3.2 cm. Additional benign and/or incidental findings - multiple appendicoliths. Plan: Urinary Retention -Likely secondary to clots -Urology consulted, rec Clarke cath for irrigation & begin Proscar -Pain control as needed -Abd/Pelvis CT: stable non-obstructing left renal calculi, no hydronephrosis. Clarke catheter identified in the urinary bladder. Multiple air-fluid levels. New hyperdense layering material likely hemorrhage/clot. This measures 2.2 x 3.2 cm. Additional benign and/or incidental findings - multiple appendicoliths. Hematuria -H/H stable, monitor -Urology consulted, Dr Olvera: rec Clarke cath for irrigation for now, follow up recs Hypocalcemia -Chronic s/p thyroidectomy, continue home meds (Ca 600 mg BID) -F/u labs Hypothyroid -Secondary thyroidectomy d/t Graves -C/w home meds Levo 175 mcg daily -(04/2018) TSH 0.03, T4 11.1, T3 1.0 DVT Prophylaxis -SCD for now <Ren Guajardo D - Last Filed: 07/03/18 17:04> Results - Vital Signs Recent Vital Signs: Last Vital Signs Temp 98.4 F 07/03/18 16:47 Pulse 95 H 07/03/18 16:47 Resp 16 07/03/18 16:47 BP 118/85 07/03/18 16:47 Pulse Ox 98 07/03/18 10:11 - Labs Result Diagrams: 07/03/18 08:24 07/03/18 08:24 Labs: Laboratory Results - last 24 hr 07/03/18 07/03/18 07/03/18 08:24 08:24 08:24 WBC 5.6 RBC 5.45 Hgb 16.4 Hct 48.6 MCV 89.1 MCH 30.0 MCHC 33.7 RDW 13.8 Plt Count 192 MPV 8.2 Neut % (Auto) 62.9 Lymph % (Auto) 25.1 [place] % (Auto) 8.6 Eos % (Auto) 2.9 Baso % (Auto) 0.5 Neut # (Auto) 3.5 Lymph # (Auto) 1.4 [place] # (Auto) 0.5 Eos # (Auto) 0.2 Baso # (Auto) 0.0 PT 11.8 INR 1.0 APTT 35.4 Sodium 138 Potassium 4.0 Chloride 100 Carbon Dioxide 30 Anion Gap 12 BUN 23 H Creatinine 0.8 Est GFR ( Amer) > 60 Est GFR (Non-Af Amer) > 60 Random Glucose 99 Calcium 7.9 L Blood Type Blood Type Confirm Antibody Screen BBK History Checked 07/03/18 07/03/18 08:24 08:52 WBC RBC Hgb Hct MCV MCH MCHC RDW Plt Count MPV Neut % (Auto) Lymph % (Auto) [place] % (Auto) Eos % (Auto) Baso % (Auto) Neut # (Auto) Lymph # (Auto) [place] # (Auto) Eos # (Auto) Baso # (Auto) PT INR APTT Sodium Potassium Chloride Carbon Dioxide Anion Gap BUN Creatinine Est GFR ( Amer) Est GFR (Non-Af Amer) Random Glucose Calcium Blood Type O POSITIVE Blood Type Confirm O POSITIVE Antibody Screen Negative BBK History Checked No verified bt Attending/Attestation - Attestation I have personally seen and examined this patient.: Yes I have fully participated in the care of the patient.: Yes I have reviewed all pertinent clinical information: Yes Notes (Text): 07/03/18 17:04 Patient seen and examined with resident. Case discussed and agreed with assessment and plan of management.
--- NOTE | 2018-07-03 16:19 | CT ---
Date of service: 07/03/2018 PROCEDURE: CT Abdomen and Pelvis without intravenous contrast HISTORY: urinary retention lower abd pain COMPARISON: 03/02/2018 and 06/05/2018. Serial CT scans of the abdomen and pelvis. TECHNIQUE: Unenhanced. Neither IV nor oral contrast administered Radiation dose: Total exam DLP = 473.06 mGy-cm. This CT exam was performed using one or more of the following dose reduction techniques: Automated exposure control, adjustment of the mA and/or kV according to patient size, and/or use of iterative reconstruction technique. FINDINGS: LOWER THORAX: Unremarkable. LIVER: Unremarkable. No gross lesion or ductal dilatation. GALLBLADDER AND BILE DUCTS: Unremarkable. PANCREAS: Unremarkable. No gross lesion or ductal dilatation. SPLEEN: Unremarkable. ADRENALS: Unremarkable. No mass. KIDNEYS AND URETERS: Redemonstration of lower pole calculi on the left. No hydronephrosis. No solid mass. VASCULATURE: Unremarkable. No aortic aneurysm. No atherosclerotic calcification or mural plaque present. BOWEL: Unremarkable. No obstruction. No gross mural thickening. APPENDIX: A normal appendix is visualized in it's entirety. Incidental finding(s): Multiple appendicoliths. PERITONEUM: Unremarkable. No free fluid. No free air. LYMPH NODES: Unremarkable. No enlarged lymph nodes. BLADDER: Clarke catheter identified. Air-fluid levels noted. Hyperdense material identified, a new finding therefore likely components of hemorrhage, clot. This measures 2.2 x 3.2 cm. REPRODUCTIVE: Unremarkable. BONES: No acute fracture. OTHER FINDINGS: None. IMPRESSION: Stable nonobstructing left renal calculi. Clarke catheter identified in the urinary bladder. Multiple air-fluid levels. New hyperdense layering material likely hemorrhage/clot. Additional benign and/or incidental findings described above.
--- NOTE | 2018-07-03 16:36 | CP.PCM.PN ---
Subjective - Date & Time of Evaluation Date of Evaluation: 07/03/18 Time of Evaluation: 16:30 - Subjective Subjective: Pt examined in ER ,Hx gross hematuria pt was here in june Dr stone cystoscoped the pt and fulgurated areas of bleeding in the prostatic fossa. Pt began bleeding again and maxwell with cbi resulted in bleeding, once cbi stopped bleeding resumed. CT shows multiple small clots within bladder.small non obstructing in kidney. A hematuria ? etiology. Suggest continue cbi,Irrigate catheter. urine c&s if possible antibiotics. start pt on proscar. Hosay Objective - Vital Signs/Intake and Output Vital Signs (last 24 hours): Temp Pulse Resp BP Pulse Ox 98.4 F 95 H 16 118/85 98 07/03/18 07:28 07/03/18 07:28 07/03/18 07:28 07/03/18 07:28 07/03/18 10:11 Intake and Output: 07/03/18 07/03/18 06:59 18:59 Output Total 0 Balance 0 - Medications Medications: Current Medications Acetaminophen (Tylenol 325mg Tab) 650 mg PO Q6 PRN PRN Reason: Pain, Mild (1-3) Calcium Carbonate (Oscal) 500 mg PO BID YANIV Levothyroxine Sodium (Synthroid) 175 mcg PO DAILY YANIV - Labs Labs: 07/03/18 08:24 07/03/18 08:24 PT 11.8 Seconds (9.8-13.1) 07/03/18 08:24 INR 1.0 07/03/18 08:24 APTT 35.4 Seconds (25.6-37.1) 07/03/18 08:24
[2018-07-04 06:22] LABS: HEMOGLOBIN 15.7 g/dL (12.0-18.0); MEAN CELL VOLUME 87.8 fl (80.0-94.0); MEAN CORPUSCULAR HEMOGLOBIN 29.9 pg (27.0-31.0); RBC 5.24 Mil/uL (4.40-5.90); RED CELL DISTRIBUTION WIDTH 14.2 % (11.5-14.5); WHITE BLOOD COUNT 7.3 K/uL (4.8-10.8)
[2018-07-04 06:26] LABS: BLOOD UREA NITROGEN 27 mg/dl (9-20); CALCIUM 8.2 mg/dL (8.4-10.2); GFR NON-AFRICAN AMERICAN > 60
[2018-07-04] MEDS: Levothyroxine 175 MCG TAB PO SCH (08:37)
--- NOTE | 2018-07-04 12:05 | CP.PCM.PN ---
<Michael LujanLayton - Last Filed: 07/04/18 12:19> Subjective - Date & Time of Evaluation Date of Evaluation: 07/04/18 Time of Evaluation: 09:15 - Subjective Subjective: Patient seen and examined this AM, NAD. Patient stable, on CBI now noted urine clear. Patient denies ADAMS, N/V, fever. Remains afebrile. Objective - Vital Signs/Intake and Output Vital Signs (last 24 hours): Temp Pulse Resp BP Pulse Ox 97.9 F 53 L 18 110/71 98 07/04/18 08:28 07/04/18 08:28 07/04/18 08:28 07/04/18 08:28 07/04/18 11:32 Intake and Output: 07/04/18 07/04/18 06:59 18:59 Intake Total 50 Output Total 550 Balance -500 - Medications Medications: Current Medications Acetaminophen (Tylenol 325mg Tab) 650 mg PO Q6 PRN PRN Reason: Pain, Mild (1-3) Last Admin: 07/04/18 08:41 Dose: 650 mg Calcium Carbonate (Oscal) 500 mg PO BID YANIV Last Admin: 07/04/18 08:36 Dose: 500 mg Ciprofloxacin (Cipro) 500 mg PO Q12 YANIV; Protocol Last Admin: 07/04/18 08:36 Dose: 500 mg Ceftriaxone Sodium 1 gm/ (Sodium Chloride) 100 mls @ 100 mls/hr IVPB DAILY YANIV; Protocol Last Admin: 07/04/18 09:42 Dose: 100 mls/hr Levothyroxine Sodium (Synthroid) 175 mcg PO DAILY YANIV Last Admin: 07/04/18 08:37 Dose: 175 mcg - Labs Labs: 07/04/18 05:00 07/04/18 05:00 PT 11.8 Seconds (9.8-13.1) 07/03/18 08:24 INR 1.0 07/03/18 08:24 APTT 35.4 Seconds (25.6-37.1) 07/03/18 08:24 - Additional Findings Additional findings: Physical Exam - Head Exam Head Exam: NORMAL INSPECTION - Eye Exam Eye Exam: Normal appearance - ENT Exam ENT Exam: Mucous Membranes Moist - Neck Exam Neck exam: Positive for: Normal Inspection - Respiratory Exam Respiratory Exam: NORMAL BREATHING PATTERN. absent: Respiratory Distress - Cardiovascular Exam Cardiovascular Exam: REGULAR RHYTHM - GI/Abdominal Exam GI & Abdominal Exam: Tenderness (tenderness to very light touch, mostly suprapubic but diffuse) - Exam Clear urine on CBI Assessment and Plan - Assessment and Plan (Free Text) Assessment: Assessment: 48-year-old male with PMH of Graves (s/p thyroidectomy few years ago) and hematu tessie s/p cystoscopy a month ago admitted to [facility] for gross hematuria. Bladder biopsy (06/05/18): chronic inflammation with granulation tissue formation. Urothelium shows reactive changes. Abd/Pelvis CT: stable non-obstructing left renal calculi, no hydronephrosis. Maxwell catheter identified in the urinary bladder. Multiple air-fluid levels. New hyperdense layering material likely hemorrhage/clot. This measures 2.2 x 3.2 cm. Additional benign and/or incidental findings - multiple appendicoliths. Plan: Urinary Retention -Likely secondary to clots -Urology consulted, rec Maxwell cath for irrigation - Proscar -Pain control as needed -Abd/Pelvis CT: stable non-obstructing left renal calculi, no hydronephrosis. Maxwell catheter identified in the urinary bladder. Multiple air-fluid levels. New hyperdense layering material likely hemorrhage/clot. This measures 2.2 x 3.2 cm. Additional benign and/or incidental findings - multiple appendicoliths. -Monitor for retention after maxwell cath is removed Hematuria -H/H stable, monitor -Urology consulted, Dr Olvera -On CBI: will DC CBI and monitor for hematuria -anticipate DC after hematuria resolved and f/u with outpatient urologist Hypocalcemia -Chronic s/p thyroidectomy, continue home meds (Ca 600 mg BID) -F/u labs Hypothyroid -Secondary thyroidectomy d/t Graves -C/w home meds Levo 175 mcg daily -(04/2018) TSH 0.03, T4 11.1, T3 1.0 DVT Prophylaxis -SCD for now <Rylee Schwab - Last Filed: 07/04/18 17:09> Objective - Vital Signs/Intake and Output Vital Signs (last 24 hours): Temp Pulse Resp BP Pulse Ox 98.5 F 68 19 102/70 95 07/04/18 16:56 07/04/18 16:56 07/04/18 16:56 07/04/18 16:56 07/04/18 16:56 Intake and Output: 07/04/18 07/04/18 06:59 18:59 Intake Total 50 100 Output Total 550 Balance -500 100 - Medications Medications: Current Medications Acetaminophen (Tylenol 325mg Tab) 650 mg PO Q6 PRN PRN Reason: Pain, Mild (1-3) Last Admin: 07/04/18 08:41 Dose: 650 mg Calcium Carbonate (Oscal) 500 mg PO BID YANIV Last Admin: 07/04/18 16:53 Dose: 500 mg Ciprofloxacin (Cipro) 500 mg PO Q12 YANIV; Protocol Last Admin: 07/04/18 08:36 Dose: 500 mg Ceftriaxone Sodium 1 gm/ (Sodium Chloride) 100 mls @ 100 mls/hr IVPB DAILY [facility]; Protocol Last Admin: 07/04/18 09:42 Dose: 100 mls/hr Levothyroxine Sodium (Synthroid) 175 mcg PO DAILY YANIV Last Admin: 07/04/18 08:37 Dose: 175 mcg - Labs Labs: 07/04/18 05:00 07/04/18 05:00 PT 11.8 Seconds (9.8-13.1) 07/03/18 08:24 INR 1.0 07/03/18 08:24 APTT 35.4 Seconds (25.6-37.1) 07/03/18 08:24 Attending/Attestation - Attestation I have personally seen and examined this patient.: Yes I have fully participated in the care of the patient.: Yes I have reviewed all pertinent clinical information, including history, physical exam and plan: Yes Notes (Text): 07/04/18 17:09 agree with findings and plan as above
--- NOTE | 2018-07-04 15:47 | CP.PCM.PN ---
Subjective - Date & Time of Evaluation Date of Evaluation: 07/04/18 Time of Evaluation: 15:45 - Subjective Subjective: Discussed with resident today,urine clear with minimal cbi,suggest stop cbi if urine remains clear dc maxwell for voiding trial. If sucessful discharge w out patient gu follow up Objective - Vital Signs/Intake and Output Vital Signs (last 24 hours): Temp Pulse Resp BP Pulse Ox 97.9 F 53 L 18 110/71 98 07/04/18 08:28 07/04/18 08:28 07/04/18 08:28 07/04/18 08:28 07/04/18 11:32 Intake and Output: 07/04/18 07/04/18 06:59 18:59 Intake Total 50 100 Output Total 550 Balance -500 100 - Medications Medications: Current Medications Acetaminophen (Tylenol 325mg Tab) 650 mg PO Q6 PRN PRN Reason: Pain, Mild (1-3) Last Admin: 07/04/18 08:41 Dose: 650 mg Calcium Carbonate (Oscal) 500 mg PO BID [facility] Last Admin: 07/04/18 08:36 Dose: 500 mg Ciprofloxacin (Cipro) 500 mg PO Q12 YANIV; Protocol Last Admin: 07/04/18 08:36 Dose: 500 mg Ceftriaxone Sodium 1 gm/ (Sodium Chloride) 100 mls @ 100 mls/hr IVPB DAILY [facility]; Protocol Last Admin: 07/04/18 09:42 Dose: 100 mls/hr Levothyroxine Sodium (Synthroid) 175 mcg PO DAILY [facility] Last Admin: 07/04/18 08:37 Dose: 175 mcg - Labs Labs: 07/04/18 05:00 07/04/18 05:00 PT 11.8 Seconds (9.8-13.1) 07/03/18 08:24 INR 1.0 07/03/18 08:24 APTT 35.4 Seconds (25.6-37.1) 07/03/18 08:24
[2018-07-04 23:32] VITALS: RESP 20
[2018-07-05 08:08] VITALS: BP 110/74; PULSE 58; TEMP 98; O2SAT 95
[2018-07-05] MEDS: Levothyroxine 175 MCG TAB PO SCH (08:50)
--- NOTE | 2018-07-05 08:56 | CP.PCM.DIS ---
<Sylwia Galan - Last Filed: 07/05/18 12:35> Provider - Provider Date of Admission: 07/03/18 15:03 Attending physician: Ren Guajardo MD Consults: 07/03/18 15:04 Urology Consult Stat Comment: Consulting Provider: Jens Bay Jr. Consulting Physician: Jens Bay Jr. Reason for Consult: hematuria Time Spent in preparation of Discharge (in minutes): 20 Diagnosis - Discharge Diagnosis (1) Blood urine Status: Resolved Hospital Course - Lab Results Lab Results: Micro Results 07/03/18 16:50 Urine,Clarke Urine Culture - Final No Growth (<1,000 CFU/ML) Most Recent Lab Values WBC 7.3 K/uL (4.8-10.8) 07/04/18 05:00 RBC 5.24 Mil/uL (4.40-5.90) 07/04/18 05:00 Hgb 15.7 g/dL (12.0-18.0) 07/04/18 05:00 Hct 46.0 % (35.0-51.0) 07/04/18 05:00 MCV 87.8 fl (80.0-94.0) 07/04/18 05:00 MCH 29.9 pg (27.0-31.0) 07/04/18 05:00 MCHC 34.0 g/dL (33.0-37.0) 07/04/18 05:00 RDW 14.2 % (11.5-14.5) 07/04/18 05:00 Plt Count 204 K/uL (130-400) 07/04/18 05:00 MPV 8.2 fl (7.2-11.7) 07/03/18 08:24 Neut % (Auto) 62.9 % (50.0-75.0) 07/03/18 08:24 Lymph % (Auto) 25.1 % (20.0-40.0) 07/03/18 08:24 Wagoner % (Auto) 8.6 % (0.0-10.0) 07/03/18 08:24 Eos % (Auto) 2.9 % (0.0-4.0) 07/03/18 08:24 Baso % (Auto) 0.5 % (0.0-2.0) 07/03/18 08:24 Neut # (Auto) 3.5 K/uL (1.8-7.0) 07/03/18 08:24 Lymph # (Auto) 1.4 K/uL (1.0-4.3) 07/03/18 08:24 Wagoner # (Auto) 0.5 K/uL (0.0-0.8) 07/03/18 08:24 Eos # (Auto) 0.2 K/uL (0.0-0.7) 07/03/18 08:24 Baso # (Auto) 0.0 K/uL (0.0-0.2) 07/03/18 08:24 PT 11.8 Seconds (9.8-13.1) 07/03/18 08:24 INR 1.0 07/03/18 08:24 APTT 35.4 Seconds (25.6-37.1) 07/03/18 08:24 Sodium 137 mmol/l (132-148) 07/04/18 05:00 Potassium 4.1 MMOL/L (3.6-5.0) 07/04/18 05:00 Chloride 102 mmol/L (98-107) 07/04/18 05:00 Carbon Dioxide 24 mmol/L (22-30) 07/04/18 05:00 Anion Gap 15 (10-20) 07/04/18 05:00 BUN 27 mg/dl (9-20) H 07/04/18 05:00 Creatinine 0.6 mg/dl (0.8-1.5) L 07/04/18 05:00 Est GFR ( Amer) > 60 07/04/18 05:00 Est GFR (Non-Af Amer) > 60 07/04/18 05:00 Random Glucose 100 mg/dL (75-110) 07/04/18 05:00 Calcium 8.2 mg/dL (8.4-10.2) L 07/04/18 05:00 Blood Type O POSITIVE 07/03/18 08:24 Blood Type Confirm O POSITIVE 07/03/18 08:52 Antibody Screen Negative 07/03/18 08:24 BBK History Checked No verified bt 07/03/18 08:24 - Hospital Course Hospital Course: 48-year-old male with PMH of Graves (s/p thyroidectomy few years ago) and hematuria s/p cystoscopy a month ago admitted to [facility] for gross hematuria. Bladder biopsy (06/05/18): chronic inflammation with granulation tissue formation. Urothelium shows reactive changes. Abd/Pelvis CT: stable non- obstructing left renal calculi, no hydronephrosis. Clarke catheter identified in the urinary bladder. Multiple air-fluid levels. New hyperdense layering material likely hemorrhage/clot. This measures 2.2 x 3.2 cm. Additional benign and/or incidental findings - multiple appendicoliths. Bladder irrigated as per Urology, Dr Bay, and hematuria resolved with no clots. Pt medically cleared for dc to home with PO antibiotics, recommend f/u PMD and Dr Bay within 1 week. ED precautions given. Discharge Exam - Head Exam Head Exam: ATRAUMATIC, NORMAL INSPECTION, NORMOCEPHALIC - Eye Exam Eye Exam: Normal appearance - ENT Exam ENT Exam: Mucous Membranes Moist - Respiratory Exam Respiratory Exam: NORMAL BREATHING PATTERN, UNREMARKABLE. absent: Respiratory Distress - Cardiovascular Exam Cardiovascular Exam: REGULAR RHYTHM - GI/Abdominal Exam GI & Abdominal Exam: Normal Bowel Sounds, Tenderness (suprapubic) - Extremities Exam Extremities exam: normal inspection - Back Exam Back exam: absent: CVA tenderness (L), CVA tenderness (R) - Neurological Exam Neurological exam: Alert, Normal Gait, Oriented x3 - Psychiatric Exam Psychiatric exam: Normal Affect, Normal Mood - Skin Skin Exam: Dry, Intact, Normal Color, Warm Discharge Plan - Discharge Medications Prescriptions: Cefdinir [Omnicef] 300 mg PO Q12 #28 ml - Follow Up Plan Condition: FAIR Disposition: HOME/ ROUTINE Instructions: Blood in the Urine (Hematuria), Adult (DC) Additional Instructions: Follow-up with Dr Bay within 1 week and PMD, Dr Mahoney, within 1 week. Referrals: Jens Bay Jr., MD [Staff Provider] - <Rylee Schwab - Last Filed: 07/06/18 19:53> Provider - Provider Date of Admission: 07/03/18 15:03 Attending physician: Ren Guajardo MD Consults: 07/03/18 15:04 Urology Consult Stat Comment: Consulting Provider: Jens Bay Jr. Consulting Physician: Jens Bay Jr. Reason for Consult: hematuria Hospital Course - Lab Results Lab Results: Micro Results 07/03/18 16:50 Urine,Clarke Urine Culture - Final No Growth (<1,000 CFU/ML) Most Recent Lab Values WBC 7.3 K/uL (4.8-10.8) 07/04/18 05:00 RBC 5.24 Mil/uL (4.40-5.90) 07/04/18 05:00 Hgb 15.7 g/dL (12.0-18.0) 07/04/18 05:00 Hct 46.0 % (35.0-51.0) 07/04/18 05:00 MCV 87.8 fl (80.0-94.0) 07/04/18 05:00 MCH 29.9 pg (27.0-31.0) 07/04/18 05:00 MCHC 34.0 g/dL (33.0-37.0) 07/04/18 05:00 RDW 14.2 % (11.5-14.5) 07/04/18 05:00 Plt Count 204 K/uL (130-400) 07/04/18 05:00 MPV 8.2 fl (7.2-11.7) 07/03/18 08:24 Neut % (Auto) 62.9 % (50.0-75.0) 07/03/18 08:24 Lymph % (Auto) 25.1 % (20.0-40.0) 07/03/18 08:24 Wagoner % (Auto) 8.6 % (0.0-10.0) 07/03/18 08:24 Eos % (Auto) 2.9 % (0.0-4.0) 07/03/18 08:24 Baso % (Auto) 0.5 % (0.0-2.0) 07/03/18 08:24 Neut # (Auto) 3.5 K/uL (1.8-7.0) 07/03/18 08:24 Lymph # (Auto) 1.4 K/uL (1.0-4.3) 07/03/18 08:24 Wagoner # (Auto) 0.5 K/uL (0.0-0.8) 07/03/18 08:24 Eos # (Auto) 0.2 K/uL (0.0-0.7) 07/03/18 08:24 Baso # (Auto) 0.0 K/uL (0.0-0.2) 07/03/18 08:24 PT 11.8 Seconds (9.8-13.1) 07/03/18 08:24 INR 1.0 07/03/18 08:24 APTT 35.4 Seconds (25.6-37.1) 07/03/18 08:24 Sodium 137 mmol/l (132-148) 07/04/18 05:00 Potassium 4.1 MMOL/L (3.6-5.0) 07/04/18 05:00 Chloride 102 mmol/L (98-107) 07/04/18 05:00 Carbon Dioxide 24 mmol/L (22-30) 07/04/18 05:00 Anion Gap 15 (10-20) 07/04/18 05:00 BUN 27 mg/dl (9-20) H 07/04/18 05:00 Creatinine 0.6 mg/dl (0.8-1.5) L 07/04/18 05:00 Est GFR ( Amer) > 60 07/04/18 05:00 Est GFR (Non-Af Amer) > 60 07/04/18 05:00 Random Glucose 100 mg/dL (75-110) 07/04/18 05:00 Calcium 8.2 mg/dL (8.4-10.2) L 07/04/18 05:00 Blood Type O POSITIVE 07/03/18 08:24 Blood Type Confirm O POSITIVE 07/03/18 08:52 Antibody Screen Negative 07/03/18 08:24 BBK History Checked No verified bt 07/03/18 08:24 Attending/Attestation - Attestation I have personally seen and examined this patient.: Yes I have fully participated in the care of the patient.: Yes I have reviewed all pertinent clinical information, including history, physical exam and plan: Yes Notes (Text): 07/06/18 19:53 Agree with findings and plan as above
== END 2018-07-05 11:20 | disposition home or self-care (01) ==
LOC: H.ER 07:20 → H.ERHOLD 15:03 → H.MEDSURG1 17:06
DX: R31.0 Gross hematuria (principal); R33.9 Retention of urine, unspecified; E03.8 Other specified hypothyroidism; E83.51 Hypocalcemia; I10 Essential (primary) hypertension; Z87.442 Personal history of urinary calculi
CPT/HCPCS: 36415; 74176; 80048; 85025; 85027; 85610; 85730; 86850; 86900; 87086; 87491; 87591; 96374; 99285; G0378; J0696; J2270